=== PATIENT | female | born 1985 | race African-American/Black ===

== ENCOUNTER 2019-10-23 11:33 | Emergency (ER) | payer OTHER ==
[~2019-10-23] VITALS: Ht 170.2 cm; Wt 65.0 kg
[~2019-10-23 11:33] MED LIST: TRAZADONE; ZIPR80CA2
[2019-10-23 15:25] VITALS: BP 135/79
[2019-10-23] MEDS: AMOXICILLIN/POTASSIUM CLAVULANATE 875/125MG TAB PO ONE (15:25)
== END 2019-10-23 15:27 | disposition home or self-care (01) ==
LOC: ER 11:33
DX: K12.2 Cellulitis and abscess of mouth (principal); R22.0 Localized swelling, mass and lump, head; F17.210 Nicotine dependence, cigarettes, uncomplicated
CPT/HCPCS: 99283